=== PATIENT | female | born 1990 | race Caucasian/White ===

== ENCOUNTER → 2024-08-22 | Outpatient (CLI) | payer OTHER ==
[~2024-08-22] MED LIST: LEVA.63IS IH
[2024-08-22 13:50] LABS: BASOPHILS ABSOLUTE AUTO 0.05 K/mm3 (0.00-0.23); BASOPHILS PERCENT AUTO 1 % (0-2); EOSINOPHILS ABSOLUTE AUTO 0.29 K/mm3 (0.00-0.68); EOSINOPHILS PERCENT AUTO 3 % (0-6); Hemoglobin 13.7 g/dL (11.5-16.0); IMMATURE GRAN ABSOLUTE AUTO 0.03 K/mm3 (0.00-0.10); IMMATURE GRAN PERCENT AUTO 0 % (0-1); LYMPHOCYTES ABSOLUTE AUTO 2.58 K/mm3 (0.84-5.20); LYMPHOCYTES PERCENT AUTO 30 % (21-46); MONOCYTES ABSOLUTE AUTO 0.64 K/mm3 (0.16-1.47); MONOCYTES PERCENT AUTO 8 % (4-13); Mean Corpuscular HGB 29.8 pg (26.0-34.0); Mean Corpuscular HGB Conc 34.3 g/dL (31.5-36.5); Mean Corpuscular Volume 87 fL (80-100); Mean Platelet Volume 10.5 fL (9.1-12.4); NEUTROPHILS PERCENT AUTO 58 % (41-73); Platelet Count 309 K/mm3 (150-400); RDW Coefficient Variation 13.2 % (11.7-14.2); RDW Standard Deviation 41.8 fL (35.1-46.3); Red Blood Cell Count 4.59 M/mm3 (3.80-5.20); White Blood Cell Count 8.49 K/mm3 (4.00-11.30)
[2024-08-22 14:28] LABS: Thyroid Stimulating Hormone 2.96 uIU/mL (0.360-4.800)
[2024-08-22 14:29] LABS: Albumin, Blood 3.7 g/dL (3.4-5.0); Bilirubin, Total 0.4 mg/dL (0.1-1.0); Bun/Creatinine Ratio 18.4 (12.0-20.0); Calcium, Blood 9.1 mg/dL (8.5-10.1); Creatinine, Blood 0.98 mg/dL (0.40-1.00); Globulin, Blood 3.6 g/dL (2.2-4.0); Potassium, Blood 3.9 mmol/L (3.5-5.5); Total Protein, Blood 7.3 g/dL (6.4-8.2)
== END ==
LOC: LAB 12:50 → LAB SHORT 12:50
PROVIDERS: Physician Assistant
DX: R42 Dizziness and giddiness (principal)
CPT/HCPCS: 80053; 84443; 85025

== ENCOUNTER 2025-06-20 13:41 | Inpatient (IN) | payer OTHER ==
[~2025-06-20] VITALS: Ht 185.4 cm; Wt 113.4 kg
[2025-06-20] MEDS ORDERED: Morphine Sulfate 4 MG/1 ML Injection IV ONE ×2 (13:50→14:15)
[2025-06-20] MEDS ORDERED: Ondansetron HCl 2 MG / ML 2ML Vial IV ONE (13:50)
[2025-06-20] MEDS ORDERED: Avita20 G1 TOP (14:24)
[2025-06-20] MEDS ORDERED: VALTREX50013 PO (14:25)
[2025-06-20 14:32] LABS: BASOPHILS ABSOLUTE AUTO 0.07 K/mm3 (0.00-0.23); BASOPHILS PERCENT AUTO 1 % (0-2); EOSINOPHILS ABSOLUTE AUTO 0.21 K/mm3 (0.00-0.68); EOSINOPHILS PERCENT AUTO 2 % (0-6); Hematocrit 38.8 % (33.0-51.0); Hemoglobin 13.0 g/dL (11.5-16.0); IMMATURE GRAN ABSOLUTE AUTO 0.17 K/mm3 (0.00-0.10); IMMATURE GRAN PERCENT AUTO 2 % (0-1); LYMPHOCYTES ABSOLUTE AUTO 3.07 K/mm3 (0.84-5.20); LYMPHOCYTES PERCENT AUTO 27 % (21-46); MONOCYTES ABSOLUTE AUTO 0.78 K/mm3 (0.16-1.47); MONOCYTES PERCENT AUTO 7 % (4-13); Mean Corpuscular HGB Conc 33.5 g/dL (31.5-36.5); Mean Corpuscular Volume 84 fL (80-100); NEUTROPHILS ABSOLUTE AUTO 7.09 K/mm3 (1.96-9.15); NEUTROPHILS PERCENT AUTO 62 % (41-73); NRBC ABSOLUTE 0.00 K/mm3 (0.00-0.02); NRBC Auto 0.0 /100 WBC (0.0-0.2); Platelet Count 334 K/mm3 (150-400); RDW Coefficient Variation 13.1 % (11.7-14.2); RDW Standard Deviation 39.7 fL (35.1-46.3)
[2025-06-20 14:38] LABS: Alanine Aminotransfer (ALT/SGP 25.0 U/L (12-78); Albumin, Blood 3.5 g/dL (3.4-5.0); Albumin/Globulin Ratio 0.9 (0.8-1.8); Anion Gap 10.0 mmol/L (3-11); Aspartate Aminotrans (AST/SGOT 26.0 U/L (12-37); Bilirubin, Total 0.4 mg/dL (0.1-1.0); Blood Urea Nitrogen 18.0 mg/dL (8-24); CO2, Blood 23.0 mmol/L (21-32); Calcium, Blood 8.9 mg/dL (8.5-10.1); Chloride, Blood 105.0 mmol/L (98-108); Creatinine, Blood 0.7 mg/dL (0.40-1.00); Globulin, Blood 3.7 g/dL (2.2-4.0); Glucose, Blood 101.0 mg/dL (70-99); Potassium, Blood 3.7 mmol/L (3.5-5.5); Sodium, Blood 134.0 mmol/L (136-145); Total Protein, Blood 7.2 g/dL (6.4-8.2)
[2025-06-20] MEDS ORDERED: HYDROmorphone HCl/Pf 1MG SYR IV ONE (15:00)
[2025-06-20] MEDS ORDERED: HYDROmorphone HCl/Pf 1MG SYR IV PRN (18:00)
[2025-06-20] MEDS ORDERED: Ondansetron HCl 2 MG / ML 2ML Vial IV PRN (18:00)
[2025-06-20] MEDS ORDERED: ALBU2.5V5 INH (21:38)
[2025-06-20 21:50] VITALS: BP 119/58
[2025-06-20] MEDS ORDERED: OxyCODONE 10/Acetamin 325 TABLET PO PRN (23:45)
[2025-06-20] MEDS ORDERED: Metoclopramide HCl 5MG / ML 2ML Vial IV PRN (23:45)
[2025-06-21 03:52] VITALS: BP 104/57
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
[2025-06-21 07:46] VITALS: BP 105/56
--- NOTE | 2025-06-21 13:50 | NUR ---
THIS EKG MONITOR TECH OFFERED TO DO BED BATH AND WASH PATIENTS HAIR.PATIENT REQUESTED TO WAIT UNTIL THERAPY SO THIS EKG MONITOR TECH COULD ASSIT WITH FULL SHOWER.RN NOTIFIED
[2025-06-21 14:40] VITALS: BP 113/65
--- NOTE | 2025-06-21 15:27 | NUR ---
THIS PLISSE MACHINE OPERATOR ASSITED PATIENT WITH WASHING HAIR IN BED.THIS PLISSE MACHINE OPERATOR OFFERED BATH WHILE IN ROOM. PATIENT DECLINED AT THIS TIME.RN NOTIFIED.
--- NOTE | 2025-06-21 17:07 | NUR ---
SHIFT SUMMARY A/OX4, CALLS APPROPRIATELY. C/O BLE, ABD PAIN AND NAUSEA, MEDICATED PER EMAR. PER ORTHO DR, PT TTWB TO LLE AND WBAT TO RLE. PT CONSULTED AND PLAN IS TO MOBOLIZE TOMORROW WITH COORDINATION OF PAIN CONTROL FROM RN. PROCTOR IN PLACE. NO ACUTE CHANGES AT THIS TIME.
[2025-06-21 19:36] VITALS: BP 120/67
[2025-06-22 04:41] VITALS: BP 123/67
--- NOTE | 2025-06-22 06:33 | NUR ---
SHIFT SUMMARY PT TRANSFERRED FROM MEDICAL FLOOR TO ROOM 311 AT SHIFT CHANGE. PT HAS RESTED T/O THE NIGHT, PAIN MANAGED PER EMAR. PT DENIES N/T IN EXT. VITALS ARE STABLE. PT VOIDING, AND TOLERATING PO INTAKE WITH NO NAUSEA THIS SHIFT. PLAN IS FOR MORE MOBILIZATION TODAY. NO ACUTE CHANGES OVERNIGHT. BED IN LOWEST POSITION, CALL LIGHT WITHIN REACH.
[2025-06-22 07:21] VITALS: BP 100/48; BP 102/50
[2025-06-22 10:12] VITALS: BP 105/57
[2025-06-22 14:45] VITALS: BP 101/46
[2025-06-22] MEDS ORDERED: Albuterol 2.5 MG/3 ML VIAL INH PRN (14:45)
[2025-06-22 14:46] VITALS: BP 104/45
--- NOTE | 2025-06-22 17:03 | NUR ---
SUMMARY NO ACUTE CHANGES T/O SHIFT. PT WORKED WITH THERAPY. FIRST THERAPY SESSION, BECAME DIZZY WHEN SAT ON EDGE OF BED. WHEN WORKED WITH PT AND OT IN AFTERNOON, WAS ABLE TO STAND BRIEFLY AT SIDE OF BED BEFORE BECOMING DIZZY AND HAVING TO LIE BACK DOWN. TOLERATING DIET. MEDICATED PER ORDERS FOR PAIN. CALL LIGHT IN REACH
[2025-06-22 20:09] VITALS: BP 116/64
--- NOTE | 2025-06-23 05:25 | NUR ---
SHIFT SUMMARY PT HAS RESTED T/O THE NIGHT, PAIN MANAGED PER EMAR. PT DENIES N/T IN EXT. RESTS IN BED T/O THE NIGHT. PLAN OF CARE REMAINS UNCHANGED. BED IN LOWEST POSITION, CALL LIGHT WITHIN REACH.
[2025-06-23 06:12] VITALS: BP 114/61
[2025-06-23 07:50] VITALS: BP 115/68
[2025-06-23] MEDS ORDERED: OxyCODONE 5 mg/Acetamin 325 mg TABLET PO PRN (13:55)
[2025-06-23 16:18] VITALS: BP 104/50
--- NOTE | 2025-06-23 16:47 | NUR ---
SUMMARY NO ACUTE CHANGES T/O SHIFT. PT WORKED WITH OT AND PT THIS SHIFT. MEDICATED T/O DAY FOR NAUSEA AND PAIN. PT PLEASANT AND COOPERATIVE. CALL LIGHT IN REACH.
[2025-06-23 19:34] VITALS: BP 106/58
--- NOTE | 2025-06-24 04:50 | NUR ---
PSYCHOLOGIST RESEARCH ASSISTANT SUMMARY NO ACUTE CHANGES THIS SHIFT. PT AAOX4 AND PLEASANT. PAIN HAS BEEN WELL MANAGED WITH 1-2 TABS OF OXYCODONE PER AUG. PT GETS A BIT NAUSEOUS WITH THE 2 TABS SO GIVEN WITH ZOFRAN AND PT ABLE TO TOLERATE IT WITH NO ISSUE. VSS, WCTM.
[2025-06-24 04:56] VITALS: BP 109/54
[2025-06-24 07:18] VITALS: BP 110/51
[2025-06-24] MEDS ORDERED: Polyethylene Glycol 3350 17 gm PO PRN (09:05)
[2025-06-24] MEDS ORDERED: Enoxaparin 40 MG/0.4 ML SYR SC SCH (10:00)
[2025-06-24 15:10] VITALS: BP 119/58
--- NOTE | 2025-06-24 17:34 | NUR ---
SHIFT SUMMARY [place] [facility] [place] ONE ASSIST. TAKING ONE PERCOCET AT A TIME FOR PAIN. DENIES COMPLAINTS. WILL CONTINUE TO MONITOR.
[2025-06-24 19:18] VITALS: BP 119/62
--- NOTE | 2025-06-25 04:32 | NUR ---
SHIFT SUMMARY A&O X4. PAIN AND NAUSEA MANAGED WELL PER EMAR. VSS. PT C/O INCREASED LOCALIZED PAIN OF THE LEFT RIB CAGE, WORSE WITH MOVEMENT AND DEEP BREATH. PT DENIES SOB. ALL LUNG PEREZ CLEAR TO AUSCULTATION. SPO2 >92% ON RA. PUREWICK IN PLACE AND DRAINING TO SUCTION. PT RESTING IN BED, RESPIRATION EVEN AND UNLABORED. CALL LIGHT WITHIN REACH.
[2025-06-25 05:02] VITALS: BP 107/66
[2025-06-25 08:00] VITALS: BP 114/65
[2025-06-25 15:58] VITALS: BP 121/64
--- NOTE | 2025-06-25 17:43 | NUR ---
SHIFT SUMMARY: PATIENT A+O X4 AND HAS BEEN ABLE TO MAKE NEEDS KNOWN THROUGHOUT THIS DAY. PATIENT HAD EXPRESSED HAVING PAIN IN PELVIS. MEDICATED PER EMAR. SEE FOR DETAILS. LUNGS CLEAR THROUGHOUT, 1 VIEW COMPLETED THIS DAY D/T PATIENT COMPLAINTS OF L SIDED RIB PAIN. AWAITING RESULTS. PATIENT PARTICIPATED WITH PHYSICAL THERAPY AND WAS NOTED TO SIT UP IN RECLINER CHAIR FOR MORE THAN AN HOUR. VOIDING WELL, AND PASSING GAS. NO BOWEL MOVEMENT THIS SHIFT. SKIN IS NOTED TO HAVE SUBTLE BRUISING T/O ABDOMEN AND EXTREMITIES. PLAN TO D/C HOME ONCE CLEARED FROM PT/OT. PLAN OF CARE ONGOING AT THIS TIME, WILL CONTINUE TO MONITOR.
[2025-06-25 19:57] VITALS: BP 117/56
[2025-06-26 04:06] VITALS: BP 107/59
--- NOTE | 2025-06-26 07:28 | NUR ---
SUMMARY PT REPORTED ADEQUATE PAIN CONTROL WITH USE OF PO PAIN MEDS.VERB SLEPT WELL.
[2025-06-26 07:29] VITALS: BP 113/56
[2025-06-26 10:43] VITALS: BP 120/74
--- NOTE | 2025-06-26 11:15 | NUR ---
DIZZINESS AND LOW BP PT ATTEMPTED TO GET OOB WITH PHYSICAL THERAPY THIS MORNING. PER THERAPY PT BECAME DIZZY AND HER BP DROPPED TO 91/58. PT WAS ASSISTED BACK TO BED, SYMPTOMS IMPROVED AND BP IMPROVED TO 120/74. PT REPORTS DECREASED APPETITE AND DIFFICULTY TAKING IN ENOUGH FLUIDS R/T GASTRIC SLEEVE AND SOME NAUSEA. PT HAS BEEN TREATED WITH ZOFRAN FOR NAUSEA. PT'S URINE IS DARK. DR. SANCHEZ NOTIFIED. LABS, FLUID BOLUS AND DIETARY CONSULT ORDERS PLACED PER DR. SANCHEZ.
[2025-06-26 11:22] LABS: Hematocrit 37.9 % (33.0-51.0); Hemoglobin 12.5 g/dL (11.5-16.0); Mean Corpuscular HGB Conc 33.0 g/dL (31.5-36.5); Mean Corpuscular Volume 87 fL (80-100); NRBC ABSOLUTE 0.00 K/mm3 (0.00-0.02); NRBC Auto 0.0 /100 WBC (0.0-0.2); Platelet Count 305 K/mm3 (150-400); RDW Coefficient Variation 13.2 % (11.7-14.2); RDW Standard Deviation 41.3 fL (35.1-46.3)
[2025-06-26 11:43] LABS: Albumin, Blood 3.2 g/dL (3.4-5.0); Anion Gap 6 mmol/L (3-11); Blood Urea Nitrogen 17 mg/dL (8-24); CO2, Blood 32 mmol/L (21-32); Calcium, Blood 8.9 mg/dL (8.5-10.1); Chloride, Blood 101 mmol/L (98-108); Creatinine, Blood 0.64 mg/dL (0.40-1.00); Glucose, Blood 91 mg/dL (70-99); Phosphorus, Blood 4.0 mg/dL (2.5-4.9); Potassium, Blood 3.6 mmol/L (3.5-5.5); Sodium, Blood 135 mmol/L (136-145)
[2025-06-26 14:40] VITALS: BP 114/63
--- NOTE | 2025-06-26 16:15 | NUR ---
DR. SANCHEZ NOTIFIED THAT ATTEMPTS TO PLACE IV WERE UNSUCCESSFUL. PT HAS WOULD NOT LIKE ANY FURTHER ATTEMPTS AT THIS TIME. SHE IS INCREASING ORAL HYDRATION ATTEMPTS. PER DR. SANCHEZ IF PT WILL ALLOW, PLACE IV.
--- NOTE | 2025-06-26 18:55 | NUR ---
SHIFT SUMMARY PAIN HAS BEEN MANAGED WITH PO PAIN MEDICATION THIS SHIFT. SHE HAS HAD SOME NAUSEA MANAGED WITH ZOFRAN AND REGLAN. PT HAS BEEN ENCOURAGED TO GET OOB AND USE THE BSC INSTEAD OF USING THE PUREWICK AT NIGHT. SHE HAD ONE EPISODE OF DIZZINESS THIS AM WITH THERAPY, BP INITIALLY DROPPED BUT IMPROVED AFTER PT RETURNED TO BED (SEE NOTE). PT HAS BEEN ABLE TO GET OOB AND TRANSFER T/O THE DAY WITHOUT FURTHER ISSUE. PO FLUIDS ENCOURAGED. IV FAILED, UNABLE TO OBTAIN REPLACEMENT ACCESS SO PT IS ATTEMPTING PO HYDRATION.
[2025-06-26 19:54] VITALS: BP 117/62
--- NOTE | 2025-06-27 04:46 | NUR ---
SHIFT SUMMARY PT SLEPT WELL T/O THE NIGHT. SHE WAS ABLE TO SHOWER BEFORE BED W/ASSISTANCE FROM HER PARTNER. MEDICATED FOR PAIN WITH 2 NORCO AND ZOFRAN FOR PAIN T/O THE NIGHT. PT UNWILLING TO NOT USE THE PUREWICK FOR THE NIGHT- EDUCATED ABOUT IMPORTANCE OF GETTING OOB, AMBULATION. SHE WAS RECEPTIVE BUT HESITANT D/T HAVING AN INCONTINENT VOID DURING THE DAY. PLAN TO CONTINUE PT/OT AND AWAIT D/C TO SNF. THE PATIENT IS CURRENTLY SLEEPING, IN NO DISTRESS, CALL LIGHT IN REACH.
[2025-06-27 05:25] VITALS: BP 123/66
[2025-06-27 07:12] VITALS: BP 115/60
[2025-06-27 15:13] VITALS: BP 110/67
--- NOTE | 2025-06-27 19:38 | NUR ---
SHIFT SUMMARY PAIN HAS BEEN MANAGED WITH PO PAIN MEDICATION. PT HAS BEEN OOB TO THE CHAIR AND OOB TO THE BSC MULTIPLE TIMES TODAY. PT IS FOCUSING ON PO HYDRATION. SMALL FREQUENT MEALS HAVE BEEN PROVIDED. REPORT GIVEN TO VANESSA MERINO.
[2025-06-27 19:39] VITALS: BP 106/55
--- NOTE | 2025-06-28 05:14 | NUR ---
WIRE BORDER ASSEMBLER SUMMARY NO ACUTE CHANGES THIS SHIFT. PT CONTINUES TO GET UP TO BSC TO VOID WITH SOME ASSISTANCE. PAIN WELL CONTROLLED WITH PERCOCET PER AUG. PT HAS DENIED ANY FURTHER DIZZINESS WHEN AMBULATING TONIGHT. VSS, DALE.
[2025-06-28 05:19] VITALS: BP 98/59
[2025-06-28 07:27] VITALS: BP 101/58
[2025-06-28] MEDS ORDERED: DOCU100 PO (14:23)
[2025-06-28] MEDS ORDERED: Percocet 5-3251 EACH PO (14:25)
[2025-06-28 15:54] VITALS: BP 112/54
--- NOTE | 2025-06-28 18:35 | NUR ---
SUMMARY ASSUMED CARE OF PT @0700. VSS. AXO4. TTAT TO L LEG AND WBAT TO R LEG. MEDS FOR PAIN ADMINISTERED PER EMAR - PT TOELRATED WELL - OFTEN REQUIRES PO ZOFRAN WITH PAIN MEDS. PT WAS PLANNED TO GO TO THERAPY @1600 BUT WITH ASSESMENT FROM DR HOYT - PT STATES SHE DIDN'T FEEL HIP WAS STABLE AND "FELT LIKE THE HIP WOULD POP OUT WITH AMBULATION TODAY" - DR HOYT POSTPONED DC TO FACILITY AND ORDERED PELVIC CT - AWAITING RESULTS NOW. PT IN BED NOW, SIGNIFICANT OTHER IN ROOM. TOLERATING PO INTAKE WELL. VOIDING WELL. HAD BM TODAY. USING CALL LIGHT APPROPRIATELY.
[2025-06-28 19:17] VITALS: BP 105/59
--- NOTE | 2025-06-29 05:03 | NUR ---
DIESEL PILE DRIVER OPERATOR SUMMARY NO ACUTE CHANGES THIS SHIFT. PT AAOX4 AND PLEASANT. PELVIC PAIN CONTROLLED WITH 2 TABS OF PERCOCET. PLACED HEEL PROTECTOR DRESSINGS ON BOTH HEELS PT WAS COMPLAINING OF SOME HEEL DISCOMFORT FROM BEING IN BED SO MUCH WHILE HERE. VSS, WCTM.
[2025-06-29 05:46] VITALS: BP 108/61
[2025-06-29 07:39] VITALS: BP 120/66
[2025-06-29 15:09] VITALS: BP 111/61
--- NOTE | 2025-06-29 15:18 | NUR ---
NOTE: PATIENT ATTEMPTED TO STAND WITH OT THIS DAY AND WAS NOTED TO HAVE EXCRUCIATING PAIN IN R HIP/PELVIS. MEDICATED PER DOCTORS ORDERS IN EMAR. SEE FOR DETAILS. THIS NURSE WILL FOLLOW UP WITH CARE COORDINATION FOR TRANSPORT OPTIONS. WILL ALTERNATE ICE PACKS AND WARM THERAPY AT THIS TIME. PILLOWS PLACED UNDER BL HIPS AND LE. WILL CONTINUE TO MONITOR, BED IN LOWEST POSITION. CALL LIGHT WITHIN REACH.
--- NOTE | 2025-06-29 16:10 | NUR ---
NOTE: THIS NURSE SPOKE WITH CARE COORDINATION IN REGARDS TO PATIENT TRANSPORT STATUS AND PAIN TOLERANCE. PT AND OT TO FOLLOW UP IN THE MORNING WITH FURTHER UPDATES. WILL CONTINUE TO MONITOR AT THIS TIME, PATIENT COMFORTABLE. CALL LIGHT WITHIN REACH.
--- NOTE | 2025-06-29 18:55 | NUR ---
SHIFT SUMMARY: PATIENT HAD BOUTS OF PAIN IN R HIP THAT HAD INTENSIFIED DURING SESSION WITH OT. PATIENT REMAINS A+O X4 AND IS ABLE TO MAKE NEEDS KNOWN. PLAN TO D/C TOMORROW TO REHAB IN [place] IF TOLERABLE. NO OTHER NEW CHANGES THIS SHIFT. PLAN OF CARE ONGOING.
[2025-06-29 19:21] VITALS: BP 108/58
[2025-06-30 02:45] VITALS: BP 103/56
--- NOTE | 2025-06-30 04:30 | NUR ---
SHIFT SUMMARY ANIVAL WAS A/O X4 ON ASSESSMENT. DENIES SOB, CHEST PAIN, MILD NAUSEA W/ MEDS RESOLVED WITH ZOFRAN. CIRCULATION/ SENSATION INTACT OT EXTS. PT REMAINED IN BED TONIGHT W/ PURWIC FOR COMFORT. UNEVENTFUL SHIFT, PAIN WELL MANAGED AT THIS TIME. NO ACUTE EVENTS OR NOTED CHANGES TO PT CONDITION.
[2025-06-30 08:48] VITALS: BP 112/61
[2025-06-30 11:31] VITALS: BP 125/61
--- NOTE | 2025-06-30 11:42 | NUR ---
REPORT CALLED TO KASEY AT [facility].
--- NOTE | 2025-06-30 12:07 | NUR ---
DISCHARGED TO [facility] PT LEFT UNIT W/DC PACKET AND POSSESSIONS, ACCOMPANIED BY SIG OTHER IN PRIVATELY OWNED VEHICLE TO GO TO [facility] IN [place].
== END 2025-06-30 11:55 | disposition home or self-care (01) | DRG 552 ==
LOC: ER 13:41 → ERHOLD 13:42 → ER 13:43 → MEDS 21:12 → SURS 06-21 19:18
PROVIDERS: Emergency Medicine; Student in an Organized Health Care Education/Training Program; ADMIT Surgery
DX: S32.110A Nondisplaced Zone I fracture of sacrum, initial encounter for closed fracture (principal); S32.592A Other specified fracture of left pubis, initial encounter for closed fracture; J45.909 Unspecified asthma, uncomplicated; Z60.2 Problems related to living alone; E86.0 Dehydration; Z88.1 Allergy status to other antibiotic agents; Z88.8 Allergy status to other drugs, medicaments and biological substances; Z79.899 Other long term (current) drug therapy; Z90.49 Acquired absence of other specified parts of digestive tract; Z98.890 Other specified postprocedural states; Z88.2 Allergy status to sulfonamides; Z98.84 Bariatric surgery status; Z79.51 Long term (current) use of inhaled steroids; Z79.2 Long term (current) use of antibiotics; V49.40XA Driver injured in collision with unspecified motor vehicles in traffic accident, initial encounter
CPT/HCPCS: 36415; 70450; 71045; 71260; 72125; 72170; 72192; 74177; 80053; 80069; 85025; 85027; 94760; 97110; 97161; 97165; 97530; 97535; A9270; J1171; J1650; J2270; J2405; J2765; J7120; Q9967